=== PATIENT | female | born 1945 | race Caucasian/White ===

== ENCOUNTER 2020-10-06 17:20 | Emergency (ER) | payer BC, MEDICARE ==
[~2020-10-06 17:20] MED LIST: OMNICEF 300 MG300 MG PO; PYRIDIUM200 MG PO
[2020-10-06 19:36] LABS: HEMOGLOBIN 12.8 gm/dl (12.3-15.3); RED BLOOD COUNT 4.51 M/UL (4.00-5.10); WHITE BLOOD COUNT 13.5 K/UL (4.5-11.0)
[2020-10-06 19:50] LABS: BUN/CREATININE RATIO 46 (0-10)
== END 2020-10-06 21:15 | disposition home or self-care (01) ==
LOC: ER1 17:20
PROVIDERS: Physician Assistant
DX: R19.7 Diarrhea, unspecified (principal); E86.0 Dehydration; E11.9 Type 2 diabetes mellitus without complications; U07.1 COVID-19
CPT/HCPCS: 80053; 81001; 82962; 85025; 87077; 87086; 87186; 99284; J7030